=== PATIENT | male | born 1965 | race African-American/Black ===

== ENCOUNTER 2025-01-25 20:19 | Emergency (ER) | payer OTHER ==
[~2025-01-25] VITALS: Ht 190.5 cm; Wt 109.0 kg
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
[2025-01-25] MEDS: KETOROLAC TROMETH 60MG/2ML VIAL IM ONE (21:00)
[2025-01-25] MEDS: HYDROcodone-ACET 5/325MG TAB PO ONE (21:38)
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
[2025-01-25 22:39] VITALS: BP 147/90; PULSE 50; RESP 17; TEMP 98.7; O2SAT 97
== END 2025-01-25 22:43 | disposition home or self-care (01) ==
LOC: ER 20:19
DX: K40.90 Unilateral inguinal hernia, without obstruction or gangrene, not specified as recurrent (principal); V89.2XXA Person injured in unspecified motor-vehicle accident, traffic, initial encounter; Y93.89 Activity, other specified; Y92.410 Unspecified street and highway as the place of occurrence of the external cause; Y99.8 Other external cause status
CPT/HCPCS: 74176; 96372; 99285; J1885

== ENCOUNTER 2025-01-25 23:11 | Emergency (ER) | payer OTHER ==
[~2025-01-25] VITALS: Ht 190.5 cm; Wt 109.0 kg
[2025-01-25] MEDS: LIDOCAINE VISCOUS 2% 15ML UD MT ONE (23:57)
[2025-01-25] MEDS: MAALOX PLUS or MAALOX 30 ML PO ONE (23:57)
[2025-01-25] MEDS: DONNATAL 5ml ORAL Elix (BELLADONNA ALK-PHENOBARB) PO ONE (23:57)
[2025-01-26 00:13] VITALS: BP 149/75; PULSE 50; RESP 18; TEMP 98.6; O2SAT 100
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
--- NOTE | 2025-02-01 11:59 | ECG ---
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
--- NOTE | 2025-02-01 11:59 | ECG ---
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
== END 2025-01-26 00:32 | disposition home or self-care (01) ==
LOC: ER 23:11
DX: R10.13 Epigastric pain (principal)